=== PATIENT | female | born 1995 | race Caucasian/White ===

== ENCOUNTER 2022-03-02 12:40 | Outpatient (CLI) | payer OTHER, SELFPAY ==
--- NOTE | 2022-03-02 13:00 | CRLHL7_ITS ---
For Patients: As a result of the Cures Act, medical imaging exams and procedure reports are released immediately into your electronic medical record. You may view this report before your referring provider. If you have questions, please contact your health care provider. INDICATION: Evaluate size and dates TECHNIQUE: Ultrasound OB pelvis transvaginal. Real time irizarry scale imaging of the pelvis was performed. COMPARISON: None FINDINGS: Sonographic imaging demonstrates a single living intrauterine gestation. The embryo demonstrates a regular cardiac rate measuring 173 beats per minute. The embryo`s crown rump length measurement of 3.0 cm corresponds to a gestational age of 9 weeks 6 days with a sonographic due date of 09/29/2022. There is a normal appearing yolk sac. There are no gross abnormalities noted within the embryo at this early state of development. The placenta has not yet developed. The gestational sac has a normal appearance. 1.0 centimeter x 1.0 centimeter x 2.2 centimeter subchorionic hemorrhage. The amount of fluid within the sac appears appropriate for gestational age. The cervix is closed. The myometrium appears normal. The ovaries are of normal size. Small right corpus luteal cyst. There are no suspicious fluid collections noted in the cul-de-sac. IMPRESSION: Viable intrauterine . Gestational age calculated at 9 weeks 3 days with a sonographic due date of 09/29/2022. 1.0 centimeter x 1.0 centimeter x 2.2 centimeter subchorionic hemorrhage. Dictated by Aleksandar Hull MD @ 03/03/2022 8:06:38 AM (Electronically Signed)
[2022-03-02 18:04] LABS: Hepatitis B Surface Antigen* Negative (Negative)
[2022-03-02 18:15] LABS: HIV 1/2/P24 Combo Screen* Negative (Negative)
[2022-03-02 18:22] LABS: Hepatitis C Virus Antibody* Negative (Negative)
[2022-03-02 18:56] LABS: Iron* 80 ug/dL (37-170)
[2022-03-02 19:05] LABS: Percent Iron Saturation 25 % (20-50); Total Iron Binding Capacity 323 ug/dL (265-497)
[2022-03-05 12:22] LABS: Rapid Plasma Reagin (RPR) Non Reactive (Non Reactive)
[2022-03-05 14:18] LABS: Rubella Antibody IgG 13.7 IU/mL
== END 2022-03-02 12:41 | disposition home or self-care (01) ==
LOC: US 12:42
PROVIDERS: Visit Provider Physician Assistant
DX: Z34.91 Encounter for supervision of normal pregnancy, unspecified, first trimester (principal); O20.9 Hemorrhage in early pregnancy, unspecified; Z3A.09 9 weeks gestation of pregnancy
CPT/HCPCS: 36415; 76817; 82728; 83540; 83550; 86592; 86703; 86762; 86787; 86803; 86850; 86900; 86901; 87086; 87340

== ENCOUNTER 2022-03-02 14:18 | Outpatient (CLI) | payer OTHER, SELFPAY ==
[2022-03-02 19:14] LABS: Chlamydia DNA Amplified* NOT DETECTED (No Detected); GC DNA Amplified* NOT DETECTED (No Detected)
== END 2022-03-02 14:19 | disposition home or self-care (01) ==
PROVIDERS: Visit Provider Physician Assistant
DX: Z34.91 Encounter for supervision of normal pregnancy, unspecified, first trimester (principal); O20.9 Hemorrhage in early pregnancy, unspecified; Z3A.09 9 weeks gestation of pregnancy
CPT/HCPCS: 87491; 87591

== ENCOUNTER 2022-05-05 07:05 | Outpatient (CLI) | payer OTHER, SELFPAY ==
--- NOTE | 2022-05-05 07:15 | CRLHL7_ITS ---
For Patients: As a result of the Century Cures Act, medical imaging exams and procedure reports are released immediately into your electronic medical record. You may view this report before your referring provider. If you have questions, please contact your health care provider. INDICATION: Evaluate anatomy. COMPARISON: 03.02.22 TECHNIQUE: Real time irizarry scale imaging of the fetus was performed as well as color Doppler analysis of the umbilical vessels. FINDINGS: Sonographic imaging demonstrates a single living intrauterine gestation. Fetus demonstrates a regular cardiac rate of 134 beats per minute. Fetus has a variable position. The placenta lies posteriorly without evidence of placenta previa. The edge of the placenta is located 6.1 cm from the internal cervical os. Amniotic fluid volume appears normal. Single deepest vertical pocket: 5.0 cm. The cervix is closed and measures 3.8 cm in length. The composite ultrasound gestational age is calculated at 19 weeks 4 days with an estimated sonographic due date of 09/25/2022. The estimated weight is 302 grams which lies at the 87th %. The following biometric measurements were obtained: Biparietal diameter: 4.5 cm/19 weeks 4 days 78th% Head circumference: 16.5 cm/19 weeks 2 days 62nd% Abdominal circumference: 14.6 cm/19 weeks 6 days 79th% Femur length: 3.0 cm/19 weeks 3 days 63rd% The HC/AC ratio measures: 1.13 range (1.08-1.26) On anatomic survey, there is a normal appearance of the cerebral ventricles, cavum septi pellucidi, cisterna magna and cerebellum. The nose, lips, and facial profile appear normal. The cervical, thoracic and lumbar spine are well visualized and appear normal. There is a normal four-chamber heart view and the left and right ventricular outflow tracts appear normal. The diaphragm and stomach appear normal. The kidneys and bladder also appear normal. There is a normal three-vessel cord and there is an eccentric cord insertion site. The four extremities appear normal. IMPRESSION: Concordance of clinical and sonographic dating. No intrinsic abnormalities noted on anatomic survey. Dictated by Aleksandar Martin MD @ 05/05/2022 10:19:03 AM (Electronically Signed)
== END 2022-05-05 07:06 | disposition home or self-care (01) ==
LOC: US 07:06
PROVIDERS: Visit Provider Physician Assistant
DX: Z34.92 Encounter for supervision of normal pregnancy, unspecified, second trimester (principal); Z3A.19 19 weeks gestation of pregnancy
CPT/HCPCS: 76805

== ENCOUNTER 2022-07-14 14:41 | Outpatient (CLI) | payer OTHER, SELFPAY | END 2022-07-14 14:42 | disposition home or self-care (01) | LOC: NFLDREF 07-17 21:58 | PROVIDERS: Visit Provider Physician Assistant | DX: Z34.90 Encounter for supervision of normal pregnancy, unspecified, unspecified trimester (principal) | CPT/HCPCS: 86592 ==

== ENCOUNTER 2022-08-08 16:30 | Outpatient (CLI) | payer OTHER, SELFPAY ==
--- NOTE | 2022-08-08 16:45 | CRLHL7_ITS ---
For Patients: As a result of the Century Cures Act, medical imaging exams and procedure reports are released immediately into your electronic medical record. You may view this report before your referring provider. If you have questions, please contact your health care provider. INDICATION: Third trimester scan, evaluate growth. Small for dates. COMPARISON: 05/05/2022 TECHNIQUE: Real time irizarry scale imaging of the fetus was performed. FINDINGS: Sonographic imaging demonstrates a single living intrauterine gestation. Fetus demonstrates a regular cardiac rate of 112 beats per minute. Fetus has a vertex position. The placenta lies posteriorly. Amniotic fluid volume appears normal and there is a single deepest vertical pocket: 3.2 cm. The estimated weight is 1912gm which lies at the 31st %. On the prior OB ultrasound exam dated 05/05/2022 the estimated weight was at the 87th%. BPD 63rd percentile. HC 37th percentile. AC 26th percentile. FL 35th percentile. The HC/AC ratio measures 1.09 range (0.96-1.12). IMPRESSION: Sonographic gestational age 32 weeks 5 days and sonographic due date 09/28/2022. Good correlation dates. Normal interval growth. Estimated weight 31st percentile. Abdominal circumference 26th percentile. Dictated by Aleksandar Martin MD @ 08/09/2022 9:07:47 AM (Electronically Signed)
== END 2022-08-08 16:31 | disposition home or self-care (01) ==
PROVIDERS: Visit Provider Advanced Practice Midwife
DX: O36.5930 Maternal care for other known or suspected poor fetal growth, third trimester, not applicable or unspecified (principal); Z3A.32 32 weeks gestation of pregnancy
CPT/HCPCS: 76816

== ENCOUNTER 2022-09-05 10:31 | Outpatient (CLI) | payer OTHER, SELFPAY ==
[2022-09-06 10:41] LABS: Strep B DNA Probe NEGATIVE (Negative)
[2022-09-06 12:06] LABS: Strep B Pen/Amox Allergy Yes
== END 2022-09-05 10:32 | disposition home or self-care (01) ==
PROVIDERS: Visit Provider Advanced Practice Midwife
DX: Z34.93 Encounter for supervision of normal pregnancy, unspecified, third trimester (principal); Z3A.36 36 weeks gestation of pregnancy
CPT/HCPCS: 87081; 87653

== ENCOUNTER 2022-09-19 14:03 | Outpatient (CLI) | payer OTHER, SELFPAY ==
--- NOTE | 2022-09-19 14:00 | CRLHL7_ITS ---
For Patients: As a result of the Century Cures Act, medical imaging exams and procedure reports are released immediately into your electronic medical record. You may view this report before your referring provider. If you have questions, please contact your health care provider. INDICATION: Small for gestational age TECHNIQUE: Real time irizarry scale imaging of the fetus was performed. COMPARISON: 08/08/2022 FINDINGS: Sonographic imaging demonstrates a single living intrauterine gestation. Fetus demonstrates a regular cardiac rate of 115 beats per minute. Fetus has a vertex position. The placenta lies fundal. Amniotic fluid volume appears normal and there is a single deepest pocket of 3.8 cm. The estimated weight is 3480gm which lies at the 65th %. On the prior OB ultrasound dated 08/08/2022 the estimated weight was at the 31st percentile. BPD 73rd percentile. HC 73rd percentile. AC 68th percentile. FL 35th percentile. The fetus was active and demonstrated normal breathing movements. There was normal flexion and extension of the trunk and extremities. IMPRESSION: Normal biophysical profile score 8/8. Sonographic gestational age 38 weeks 5 days and sonographic due date 09/28/2022. Good correlation with dates. Estimated weight 65th percentile. Abdominal circumference 68th percentile. Dictated by Aleksandar Martin MD @ 09/19/2022 3:36:49 PM (Electronically Signed)
== END 2022-09-19 14:04 | disposition home or self-care (01) ==
LOC: US 14:03
PROVIDERS: Visit Provider Advanced Practice Midwife
DX: O36.5930 Maternal care for other known or suspected poor fetal growth, third trimester, not applicable or unspecified (principal); Z3A.38 38 weeks gestation of pregnancy
CPT/HCPCS: 76816; 76819

== ENCOUNTER 2022-09-27 13:56 | Outpatient (CLI) | payer OTHER, SELFPAY ==
--- NOTE | 2022-09-27 14:00 | CRLHL7_ITS ---
For Patients: As a result of the Century Cures Act, medical imaging exams and procedure reports are released immediately into your electronic medical record. You may view this report before your referring provider. If you have questions, please contact your health care provider. INDICATION: Low heart rate COMPARISON: 09/30/2022 TECHNIQUE: Real time irizarry scale imaging of the fetus was performed. Without non-stress testing. FINDINGS: Sonographic imaging demonstrates a single living intrauterine gestation. Fetus demonstrates a regular cardiac rate of 114-128 beats per minute. Fetus has a vertex position. The amniotic fluid volume appears normal and there is a single deepest pocket measurement of 5.9 cm. The fetus was active and demonstrated normal breathing movements. There was normal flexion and extension of the trunk and extremities. IMPRESSION: Normal biophysical profile score of 8 out of 8. Dictated by Aleksandar Martin MD @ 09/27/2022 3:19:15 PM (Electronically Signed)
== END 2022-09-27 13:57 | disposition home or self-care (01) ==
LOC: US 13:58
PROVIDERS: Visit Provider Advanced Practice Midwife
DX: O36.8390 Maternal care for abnormalities of the fetal heart rate or rhythm, unspecified trimester, not applicable or unspecified (principal)
CPT/HCPCS: 76819

== ENCOUNTER 2022-10-01 04:47 | Outpatient (CLI) | payer OTHER, SELFPAY ==
[2022-10-01 05:02] VITALS: BP 123/70; PULSE 55; RESP 17; TEMP 36.6
--- NOTE | 2022-10-01 06:00 | PC.OBNST ---
NST Note NST Note Start: 10/01/22 04:57 Freq: ONCE Status: Active Protocol: Document 10/01/22 05:59 HI (Rec: 10/01/22 06:00 HI [id number]) NST Note 1 Para (# of births) 0 EDC 09/30/22 Gestational Age In Weeks & Days 40 Weeks & 1 Days Patient Presented with Complaint(s) of Contractions/cramping Reactive Yes Appropriate for Gestational Age Yes GO Quan RNC Date 10/01/22 Reactive Yes Appropriate for Gestational Age Yes GO Story RN Date 10/01/22 OB NST charge Yes Complete NST Note via Write Note Yes The provider's electronic signature indicates the NST is reactive/appropriate for gestational age. *Note to provider: If an addendum is required, open the patient's chart and click on the note under the Nurse/Allied Health tab.
[2022-10-01 06:03] LABS: Appearance Urine Clear (Clear); Bilirubin Urine Negative (Negative); Blood Urine Negative (Negative); Color Urine Yellow (Yellow); Glucose Urine Negative (Negative); Ketones Urine Negative (Negative); Leukocyte Esterase Urine Negative (Negative); Nitrite Urine Negative (Negative); Protein Urine Negative (Negative); Specific Gravity Urine 1.015 (1.000-1.030); Urobilinogen Urine 0.2 (0.2-1.0); pH Urine 8.5 (5.0-8.5)
== END 2022-10-01 06:00 | disposition home or self-care (01) ==
LOC: OB OUT 04:48 → OB 04:48
PROVIDERS: Visit Provider Advanced Practice Midwife
DX: O47.1 False labor at or after 37 completed weeks of gestation (principal); Z3A.40 40 weeks gestation of pregnancy
CPT/HCPCS: 59025; 81003; 99213

== ENCOUNTER 2022-10-01 16:45 | Inpatient (IN) | payer OTHER, SELFPAY ==
[2022-10-01] VITALS (13 sets, daily range): BP systolic 122–146; BP diastolic 53–75; PULSE 35–113; RESP 16–18; TEMP 36.6–37.2; O2SAT 94–99; BMI 25.9
[2022-10-01] MEDS: OXYTOCIN 10 UNIT/ML INJ IM (20:20)
[2022-10-01] MEDS: LIDOCAINE 1 % PF 30 ML INJECTION (20:27)
--- NOTE | 2022-10-01 20:52 | P.LDBA_ITS ---
Subjective History of Present Illness Time Seen by Provider: 18:15 Date Seen: 10/01/22 Narrative: Patient is being admitted to Labor and Delivery for active labor. She is a 27 year old at 40.1 weeks gestation. Her full history and physical was dictated by Nadia Ricardo CNM on 09/11/22. Please see this for details. Ligia had presented earlier in the day. At that time she was 3-4cm and requested to go home to continue to labor there. 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 She come back and was found to be 6cm and more uncomfortable but with good control. She labored in multiple positions before electing to get into the tub. she labored to complete and started pushing spontaneously. 1. PCOS Conceived with Letrozole & Ovidrel 2. History of asthma No symptoms or medication for years 3. Anemia. Hemoglobin 10.8 at 1st OB Iron: 80, ferritin: 43 Ferrous sulfate 325 daily 4. Measuring small for dates at 30.6 weeks. EFW 39% on growth u/s. Repeat at 38 weeks, EFW 65% 5. Low FHR noted at 2 visits. Weekly BPPs recommended per OB. OB - Problem Based A/P Additional Plan (1) Pain during labor: Status: Acute (2) Post term over 40 weeks: Status: Acute Plan ASSESSMENT:? at 40.1 weeks gestation? GBS negative? Uncomplicated ? PLAN:? 1. Admit for active labor. 2. Desires water . Consent signed. Hep C negative.? 3. Candidate for analgesia of choice. Planning unmedicated .? 4. Anticipate .? 5. Expectant management at this time.? 6. IV not needed at this time. Can place if meets criteria per unit policy. 7. Intermittent auscultation after reactive strip per until policy.? ? Delivery/Labor/Induction Plan Plan: expectant management OB Result Labs Blood Type: AB (+) positive GBS Status: negative OB Exam Physical Exam Vital signs: Temp Pulse Resp BP Pulse Ox 98.6 F 90 16 125/67 94 10/01/22 20:47 10/01/22 20:47 10/01/22 19:00 10/01/22 20:47 10/01/22 18:05 Narrative: Psychiatric:? Alert and oriented x3? HEENT:? Normocephalic, atraumatic? Neck:? Supple without adenopathy or thyromegaly? Lungs:? Clear to auscultation bilaterally? Heart:? Regular rate and rhythm, no murmur, rub or gallop? Abdomen:? Soft, nontender, and gravid? Extremities:? No edema or erythema? Detailed Labor and Delivery Exam Patient Gravid: Yes Dilation (cm): 6 (per RN exam) Effacement (%): 90 Contraction Frequency: 2-5 Tachysystole: No Contraction intensity: Strong/Firm Fetus (Single) Amniotic Membrane Status: intact Heart Rate Baseline: 120 Monitor Accelerations: Present Monitor Decelerations: Early Nursing Home Variability: Moderate (6-25)
--- NOTE | 2022-10-01 21:09 | W.PM.OBVAGDE ---
OB Procedure Vag Delivery Mother Details Mother Details: The patient is a 27 year-old, 1, Para 0, admitted on 10/01/22 at 40.1 Days gestation. : 1 Para: 1 Weeks Gestation: 40.1 Admission Date: 10/01/22 Additional Details Amniotic Membrane Status: SROM Amniotic Membrane Rupture Date: 10/01/22 Amniotic Membrane Rupture Time: 19:00 Amniotic Membrane Fluid Description: Clear (terminal meconium ) Analgesia/Anesthesia Type: None Waterbirth: Yes Pitcoin: Yes ( only) Intrapartal Events: None Labor Onset: 16:25 Complete: 18:30 Pushin:30 Heart: heart tones during second stage were auscultated with the doppler in the 110-120's. Delivery Details Delivery Date: 10/01/22 Delivery Time: 20:08 Route of delivery: Infant Gender: Male Infant Viability: Alive; Heart Rate Present Position at Delivery: OA Delivery Details: Ligia pushed well. Ther perineal tissue was very tight and baby sat on the perineum for a number of contractions but the tissue was able to stretch enough for the baby to be delivered. Delivered over intact perineum via spontaneous vaginal delivery. was placed on maternal abdomen.?Cord was clamped and cut almost immediately and brought to the warmer for poor color, tone, and lack of respiratory effort. The baby received PPV and did come around after a short period of time. See the nursing documentation for details. Infant weight 7lb 4oz. There was a nuchal cord that was delivered through. The placenta delivered spontaneously. There was a 1st degree perineal laceration with a 1cm area that went to a 2nd degree and did not involve and muscle tissue that was hemodynamically stable. With shared decision making with the patient, it was decided not to repair. 1 Minute Interval Total Score: 1 5 Minute Interval Total Score: 5 10 Minute Interval Total Score: 8 Additional Details Shoulder Dystocia: No Placenta Delivery Time: 20:17 Placental Delivery Description: Spontaneous Blood Loss: 125 Laceration: Perineal - 1st Degree (1cm 2nd degree laceration. not bleeding and not repaired.) Episiotomy Description: None Blood Loss Measurement Type: QBL Bakri Used: No Sponge/Need Count Correct: Yes Cord Vessel Description: 3 Vessels, Nuchal Cord and Delivered through Event Summary Status: Mother and infant were stable after delivery. Disposition: floor
[2022-10-02 00:02] VITALS: BP 117/61; PULSE 71; RESP 16; TEMP 36.7; O2SAT 98
[2022-10-02 04:22] VITALS: BP 103/53; PULSE 58; RESP 16; TEMP 37; O2SAT 98
[2022-10-02 07:19] LABS: Hemoglobin* 12.6 gm/dL (12.0-16.0)
[2022-10-02] MEDS: IBUPROFEN 600 MG TABLET PO ×2 (07:58→21:38)
[2022-10-02 08:00] VITALS: BP 125/72; PULSE 72; RESP 16; TEMP 37.3; O2SAT 97
[2022-10-02 12:30] VITALS: BP 123/65; PULSE 70; RESP 16; TEMP 36.6; O2SAT 98
--- NOTE | 2022-10-02 13:13 | P.DS_ITS ---
DS: Providers Provider Time Seen by Provider: 13:13 Date Seen: 10/02/22 Date of admission: 10/01/22 16:45 Primary care physician: Not a Local Provider Admitting Clinician: Fadia Campos CNM Attending Physician on discharge: Fadia Campos CNM Date of Discharge: 10/02/22 DS: Diagnosis Discharge Diagnosis (1) NVD (normal vaginal delivery): Status: Acute (2) Lactating mother: Status: Acute Exam Narrative: Exam Narrative: VSS, afebrile GENERAL APPEARANCE: ?normal affect, alert, no distress MOOD: ?appropriate HEENT: normocephalic, neck supple, full ROM CHEST: ?Symmetrical chest wall movement. ?Normal respiratory effort. ?Clear to auscultation HEART: ?regular rate and rhythm ABDOMEN: ?soft, non-tender. Uterine fundus is firm, 2 below Umbilicus, Midline and is appropriate for the stage of recovery. ?Bowel sounds present. PERINEUM: ?mild edema of the perineum, there is a 2nd degree laceration that is healing well. EXTREMITIES: ?normal and no edema Const: Vital Signs, click to edit/add: Vital Signs - 24 hr 10/01/22 16:08 10/01/22 16:13 10/01/22 17:02 Temperature Pulse Rate 58 L Pulse Rate [Pulse Oximeter] Respiratory Rate Blood Pressure 123/68 Blood Pressure [Le ft Arm] Pulse [facility]ximetry 99 [facility] 18:05 10/01/22 19:00 10/01/22 20:32 Temperature 98.0 F 97.9 F Pulse Rate 113 H 90 85 Pulse Rate [Pulse Oximeter] Respiratory Rate 18 16 Blood Pressure 133/53 L 146/68 H 122/66 Blood Pressure [Le ft Arm] Pulse Oximetry 94 [facility] 10[facility]/22 20:32 10/01/22 20:47 10/01/22 21:02 Temperature 99 F 98.6 F Pulse Rate 90 71 Pulse Rate [Pulse Oximeter] Respiratory Rate Blood Pressure 125/67 123/56 L Blood Pressure [Le ft Arm] Pulse Oximetry [facility] 21:02 10/01/22 21:17 10/01/22 21:17 Temperature 98.7 F 98.4 F Pulse Rate 65 Pulse Rate [Pulse Oximeter] Respiratory Rate Blood Pressure 126/61 Blood Pressure [Le ft Arm] Pulse Oximetry Oxygen Delivery Me thod 10/01/22 21:32 10/01/22 21:32 10/01/22 21:47 Temperature 98.8 F Pulse Rate 74 72 Pulse Rate [Pulse Oximeter] Respiratory Rate Blood Pressure 126/63 125/64 Blood Pressure [Le ft Arm] Pulse Oximetry Oxygen Delivery Me thod 10/01/22 21:47 10/01/22 22:02 10/01/22 22:02 Temperature 98.5 F 98.3 F Pulse Rate 35 L Pulse Rate [Pulse Oximeter] Respiratory Rate Blood Pressure 122/75 Blood Pressure [Le ft Arm] Pulse Oximetry Oxygen Delivery Me thod 10/01/22 22:17 10/01/22 22:17 10/02/22 00:02 Temperature 98.4 F 98.0 F Pulse Rate 72 Pulse Rate [Pulse Oximeter] 71 Respiratory Rate 16 Blood Pressure 126/68 Blood Pressure [Le ft Arm] 117/61 Pulse Oximetry 98 Oxygen Delivery Me thod Room Air 10/02/22 04:22 10/02/22 08:00 10/02/22 12:30 Temperature 98.6 F 99.2 F 97.9 F Pulse Rate Pulse Rate [Pulse Oximeter] 58 L 72 70 Respiratory Rate 16 16 16 Blood Pressure Blood Pressure [Le ft Arm] 103/53 L 125/72 123/65 Pulse Oximetry 98 97 98 Oxygen Delivery Me thod Room Air Room Air Room Air Documenting provider has reviewed patient's vital signs: yes OB - DS: Summary Hospital Course Hospital Course: Ligia is a 27 y.o. G1 P 1 who was admitted to [facility] & [facility] for labor. ?She had an uncomplicated NVD The patient feels well. ?The pain is well controlled with current medications. ?She has no new complaints. ?She is breast feeding and reports things are going well.? the patient has done well.? Vitals have been stable.? She has remained afebrile.? Has a good appetite, is tolerating a general diet. ?She is voiding without difficulty.? She is passing gas and has not had a bowel movement.? She is ambulating and denies any dizziness.? Has Small amount of rubra lochia. Problems: none plan: Discharge home with baby. Follow up in 2 weeks and 6 weeks. , may follow up with if needed Peripartum Data delivery method: Vaginal Laceration description: Perineal - 2nd Degree complications: none Infant Gender: Male Discharge Plan: Home Status at Discharge Functional status at discharge: independent ambulation Overall status at discharge: patient is progressing back to baseline Time Spent with Patient Time attestation: Total time spent providing and/or coordinating discharge services: Time spent: Less than 30 minutes Discharge Plan Discharge Disposition: Home, Self-Care Date of Admission: 10/01/22 16:45 Attending Provider on Discharge: Lorene Contreras Primary Care Provider: Provider,Not a Local Condition: Stable Anticipated Discharge Date/Time: 10/02/22 21:00 Discharge Medications: New docusate sodium 100 mg Capsule 100 mg PO BID PRNQty: 100 0RF Rx Instructions: Take 1 cap 1-2 times a day as needed for constipation ibuprofen 600 mg Tablet 600 mg PO Q6H PRNQty: 60 0RF Continued prenat.vits,nasir,[id number] Tablet 1 tab PO QDAY Discontinued ferrous sulfate 325 mg (65 mg iron) tablet 325 mg PO QDAY Qty: 90 3RF Discharge Orders: Discharge Order (Routine); Ordered 10/02/22 Ordered By: Lorene Contreras Patient Education: OB Over the Counter Medication Information, OB Vaginal/Breast Feeding Additional Instructions: Follow up at 2 and 6 weeks in the clinic Activity Level: Activity as Tolerated Discharge Diet: Regular Follow Up Appointments: Provider,Not a Local [Primary Care Provider] - Forms: [employer] Info Instructions
[2022-10-02 16:00] VITALS: BP 117/75; PULSE 57; RESP 16; TEMP 36.6; O2SAT 98
[2022-10-02 21:00] VITALS: BP 109/65; PULSE 57; RESP 16; TEMP 36.7
== END 2022-10-02 22:32 | disposition home or self-care (01) | DRG 807 ==
LOC: OB OUT 16:56 → OB 16:56
PROVIDERS: Admitting Provider Advanced Practice Midwife; Visit Provider Advanced Practice Midwife
DX: O48.0 Post-term pregnancy (principal); Z37.0 Single live birth; O99.284 Endocrine, nutritional and metabolic diseases complicating childbirth; E28.2 Polycystic ovarian syndrome; O70.1 Second degree perineal laceration during delivery; Z3A.40 40 weeks gestation of pregnancy
CPT/HCPCS: 36415; 85018; A9270; J2001; J2590

== ENCOUNTER 2023-03-02 09:26 | Outpatient (CLI) | payer OTHER, SELFPAY ==
--- NOTE | 2023-03-02 17:00 | W.PM.LAC.MC ---
Consult Note - Mom Date of Visit Date of visit: 03/02/23 construction safety consultant: Merlene Oliver Visit Code: Visit Patient's Information Phone number: [phone] : 1 Para: 1 Allergies amoxicillin Allergy (Mild, Verified 11/14/22 08:26) Rash Mother's Medical History: Medical History (Updated 11/14/22 @ 10:57 by Sola Leigh MD) hx of infertility treatment to conceive baby Type of Contraception: condoms Work Plans: stay at home mom Delivery Information Delivery type: Vaginal Weeks Gestation: 40.1 Gestational Age: AGA Weight: 3.28 kg Baby's Information Baby's Age at Visit: 5 months Baby's Provider or Clinic: Dr. Langston Reason for Consult Reason for Consult: mom is concerned for her supply, pre and post feeding weight Past Experience Past Experience: No Current Frequency of Day Feedings: baby nurses 7 - 8 times/24 hours Both Breasts: Yes Suck: strong Latch: wide Length of Time: about 10 minutes total Pumping Pumping: Yes (once/day) Quantity Pumped: usually 2 - 3 oz total Supplementing EMB Supplement: Yes (baby takes 1 - 2 oz EBM or Nutramigen after most nursing sessions) Formula Supplement: Yes Baby Elimination Number of Wet Diapers a Day: almost every feeding Number of BM a Day: 1 - 3 times/day, more solid now with formula Breast/Nipple Condition Breast Information: WNL Maternal Nipple Condition - Left: Common Nipple Maternal Nipple Condition - Right: Common Nipple Onsite Pre-Feed weight: 6.6 kg Post-Feed weight: 6.71 kg Milk Transferred (mL): 110 Assessments/Interventions Assessments/Interventions: Met with mom and this now 5 month old ex- term AGA baby for consult. Mom reports a concern for her supply beginning a few months ago, and then especially after baby's 4 month WCC where he had fallen from the 40th percentile on the growth chart to the 4th. She states she's at home with him so he nurses 7 - 8 times/24 hours and the sessions have gotten shorter, now only lasting about 10 minutes total. She said he was a little fussy after nursing, but she'd burp him, he'd start playing with something, then get sleepy so she wasn't concerned until his PCP visit. For about a week she's added in Nutramigen formula, about 1 oz after every nursing session (baby is sensitive to dairy in her diet). States he's been more content and sleeping better overnight with the addition of the formula. She's pumping once/day and gets between 2 - 3 oz total. She tried pumping three times/day last week but it got to be too much. She's tried power pumping in the past but stated it helped for a few days but her supply seemed to go back down after that. Breasts WNL- symmetrical with rounded lower quadrants, intramammary distance < 1.5 inches. Nipples are everted and don't flatten or retract on compression, no damage noted. Mom with hx of PCOS and stated she conceived baby through fertility treatments. She reports positive breast changes during . Baby has gained 63 grams/day since mom started adding formula on 02/22. His palate is WNL. His upper lip is a little difficult to flange, but the gums don't jose david and no suck blister noted. He has a fairly strong suck on a finger and his tongue consistently extends past the gum line. The tongue has good lateral movement and the lower frenulum appears to be WNL. Mom latched him to both sides and the latch was wide, she was comfortable. Baby nursed for about 10 minutes total and transferred 110 grams (3.7 oz). Mom was measured and a flange size was suggested. Plan: 1. Mom to continue nursing on demand. We discussed that it's natural for nursing sessions to get shorter as babies get older b/c they're more efficient. 2. Will continue to offer supplementation after nursing but she can use her EBM first and then formula when she doesn't have any more of her milk. 3. Suggested she continue pumping daily, but to add in hand expression after nursing sessions and pumping. She practiced here and was able to get some sprays of milk. Referred her to two videos to watch at home. 4. Could try herbal supplements and handout given, no contraindications. 5. Will f/u with her by phone on 03/09 and baby will see PCP for a 6 month WCC. Meds Home Medications and Allergies Home Medications Medication Instructions Recorded Confirmed Type prenat.vits,nasir,[id number] 1 tab PO QDAY 03/02/22 11/14/22 History Allergies Allergy/AdvReac Type Severity Reaction Status Date / Time amoxicillin Allergy Mild Rash Verified 11/14/22 08:26
== END 2023-03-02 09:27 | disposition home or self-care (01) ==
LOC: OB LAC 09:27
PROVIDERS: Visit Provider Obstetrics & Gynecology
DX: Z39.1 Encounter for care and examination of lactating mother (principal)
CPT/HCPCS: 99211

== ENCOUNTER 2023-09-07 11:48 | Outpatient (CLI) | payer OTHER, SELFPAY | END 2023-09-07 11:49 | disposition home or self-care (01) | LOC: NFLDREF 09-11 16:28 | PROVIDERS: Visit Provider Advanced Practice Midwife | DX: Z13.220 Encounter for screening for lipoid disorders (principal) | CPT/HCPCS: 80061 ==

== ENCOUNTER 2023-10-17 14:15 | Outpatient (RCR) | payer OTHER, SELFPAY | END 2023-12-11 14:12 | disposition home or self-care (01) | PROVIDERS: Visit Provider Advanced Practice Midwife | DX: R42 Dizziness and giddiness (principal); M25.50 Pain in unspecified joint; Z51.89 Encounter for other specified aftercare | CPT/HCPCS: 95992; 97110; 97140; 97162 ==

== ENCOUNTER 2024-07-08 12:06 | Outpatient (CLI) | payer OTHER, SELFPAY ==
--- NOTE | 2024-07-08 12:15 | CRLHL7_ITS ---
For Patients: As a result of the Century Cures Act, medical imaging exams and procedure reports are released immediately into your electronic medical record. You may view this report before your referring provider. If you have questions, please contact your health care provider. OBSTETRICAL ULTRASOUND TRANSVAGINAL - FIRST TRIMESTER, 07/08/2024 CLINICAL INDICATION: Dating and viability. LMP: 04/16/2024 STEPHANIE by LMP: 01/21/2025 Gestational age: 11 weeks 6 days Previous ultrasound: No TECHNIQUE: Real-time irizarry-scale imaging of the fetus was performed transvaginal. FINDINGS: CRL: 1.7 cm, 8 weeks 1 day; STEPHANIE 02/16/2025 heart rate: 165 BPM Gestational sac: 3.2 cm, appears within normal limits Yolk sac: 2.3 mm, appears within normal limits Right ovary: Within normal limits; 4.3 x 2.0 x 3.0 cm, CL Left ovary: Within normal limits; 3.5 x 1.7 x 2.4 cm COMMENT: Anechoic right paraovarian cyst 12 x 12 x 14 mm. Patient states irregular cycles due to PCOS and delivery 2 years ago. IMPRESSION: 1. Single living intrauterine with sonographic gestational age of 8 weeks 1 day and sonographic due date of 02/16/2025. 2. Corpus luteal cyst of right ovary and right paraovarian simple cyst. 3. Two subchorionic hemorrhages measuring 8 x 14 x 17 mm and 25 x 5 x 9 mm. ALEKSANDAR OTERO M.D. Diagnostic Radiologist [email or web address] Transcribed: 5:[address]/Dictated by: Aleksandar Otero MD @ 07/08/2024 3:24:00 PM (Electronically Signed)
== END 2024-07-08 12:07 | disposition home or self-care (01) ==
LOC: US 12:06
PROVIDERS: Visit Provider Advanced Practice Midwife
DX: Z34.91 Encounter for supervision of normal pregnancy, unspecified, first trimester (principal); O20.9 Hemorrhage in early pregnancy, unspecified; O34.81 Maternal care for other abnormalities of pelvic organs, first trimester; N83.11 Corpus luteum cyst of right ovary; Z3A.08 8 weeks gestation of pregnancy
CPT/HCPCS: 76817

== ENCOUNTER 2024-07-08 13:31 | Outpatient (CLI) | payer OTHER, SELFPAY | END 2024-07-08 13:32 | disposition home or self-care (01) | PROVIDERS: Visit Provider Advanced Practice Midwife | DX: Z34.81 Encounter for supervision of other normal pregnancy, first trimester (principal); Z67.30 Type AB blood, Rh positive | CPT/HCPCS: 83020; 83021; 85660; 86592; 86703; 86704; 86706; 86762; 86787; 86803; 86850; 86900; 86901; 87086; 87340 ==

== ENCOUNTER 2024-08-05 13:29 | Outpatient (CLI) | payer OTHER, SELFPAY | END 2024-08-05 13:30 | disposition home or self-care (01) | PROVIDERS: Visit Provider Advanced Practice Midwife | DX: Z34.91 Encounter for supervision of normal pregnancy, unspecified, first trimester (principal); Z3A.12 12 weeks gestation of pregnancy | CPT/HCPCS: 87491; 87591 ==

== ENCOUNTER 2024-09-04 13:36 | Outpatient (CLI) | payer OTHER, SELFPAY | END 2024-09-04 13:37 | disposition home or self-care (01) | LOC: NFLDREF 09-05 01:32 | PROVIDERS: Visit Provider Advanced Practice Midwife | DX: Z34.92 Encounter for supervision of normal pregnancy, unspecified, second trimester (principal); N39.3 Stress incontinence (female) (male); Z3A.16 16 weeks gestation of pregnancy | CPT/HCPCS: 87086 ==

== ENCOUNTER 2024-09-30 15:41 | Outpatient (CLI) | payer OTHER, SELFPAY ==
--- NOTE | 2024-09-30 15:45 | CRLHL7_ITS ---
For Patients: As a result of the Century Cures Act, medical imaging exams and procedure reports are released immediately into your electronic medical record. You may view this report before your referring provider. If you have questions, please contact your health care provider. OB ULTRASOUND SURVEY STEPHANIE by US: 02/16/2025. GA: 20 w, 1 d. INDICATION: Supervision of normal . TECHNIQUE: Real time irizarry scale imaging of the fetus was performed. Evaluate anatomy. Transabdominal imaging performed. position: Vertex. Cervix: Visualized. Technique: Transabdominal. Length of closed cervix: 6.2 cm. Placenta/cord: Anterior. Technique: Transabdominal. Placenta tip to internal OS: 6.8 cm. Umbilical Cord: 3-vessel cord. Placenta insertion: Central. Amniotic Fluid: 5.0 cm SDP (greater than/equal to: 2- less than 8 cm). SURVEY: Observed Structures. Calvarium/Spine: Cerebellum: 2.1 cm, 21 w 0 d. Cisterna Magna: 4.0 mm. Nuchal Fold: 3.5 mm. Lateral Ventricle: 6.1 mm. CSP: Yes. Midline Falx: Yes. Choroid Plexus: Yes. Spine: Yes. Abdomen: Stomach: Yes. Abd Cord Insertion: Yes. Urinary Bladder: Yes. Kidneys: Yes. Diaphragm: Yes. Face: Nose/lips: Yes. Orbital view: Yes. Profile: Yes. Limbs: Upper Extremities: Yes. Lower Extremities: Yes. Hands: Yes. Feet: Yes. Vascular: 4-Chamber Heart: Yes. LVOT: Yes. RVOT: Yes. 3VV: Yes. 3VTV: Yes. BPD: 4.6 cm. 19 w, 6 d, 36 percent. HC: 17.4 cm. 19 w, 6 d, 31 percent. AC: 14.6 cm. 19 w, 6 d, 35 percent. FL: 3.2 cm. 20 w, 6 d, 37 percent. FL/AC ratio: 22.06 percent. HC/AC ratio: 1.19. heart rate: 142 bpm. age by this US: 20 w, 1 d. STEPHANIE by this US: 02/16/2025. EFW: 320.95 g. Weight: 0 lbs, 11 oz. Percentile by STEPHANIE: 33 percent. IMPRESSION: 1. Concordance of clinical and sonographic dating. 2. Normal anatomic survey. Aleksandar Martin M.D. Diagnostic Radiologist [email or web address] ALLY/jj jj/Dictated by: Aleksandar Martin MD @ 10/01/2024 6:03:00 AM (Electronically Signed)
== END 2024-09-30 15:42 | disposition home or self-care (01) ==
LOC: US 15:42
PROVIDERS: Visit Provider Advanced Practice Midwife
DX: Z34.92 Encounter for supervision of normal pregnancy, unspecified, second trimester (principal); Z3A.20 20 weeks gestation of pregnancy
CPT/HCPCS: 76805

== ENCOUNTER 2024-11-28 13:43 | Outpatient (CLI) | payer OTHER, SELFPAY | END 2024-11-28 13:44 | disposition home or self-care (01) | LOC: NFLDREF 12-03 15:18 | PROVIDERS: Visit Provider Advanced Practice Midwife | DX: Z34.92 Encounter for supervision of normal pregnancy, unspecified, second trimester (principal) | CPT/HCPCS: 86592 ==

== ENCOUNTER 2025-01-23 13:45 | Outpatient (CLI) | payer OTHER, SELFPAY | END 2025-01-23 13:46 | disposition home or self-care (01) | LOC: NFLDREF 01-27 06:27 | PROVIDERS: Visit Provider Midwife | DX: Z34.82 Encounter for supervision of other normal pregnancy, second trimester (principal) | CPT/HCPCS: 87081; 87653 ==

== ENCOUNTER 2025-02-03 10:30 | Outpatient (RCR) | payer OTHER, SELFPAY | END 2025-03-06 13:17 | disposition home or self-care (01) | PROVIDERS: Visit Provider Advanced Practice Midwife | DX: N81.89 Other female genital prolapse (principal); N39.3 Stress incontinence (female) (male); Z39.2 Encounter for routine postpartum follow-up; Z51.89 Encounter for other specified aftercare | CPT/HCPCS: 97110; 97112; 97161; 97535 ==

== ENCOUNTER 2025-02-13 00:21 | Inpatient (IN) | payer OTHER, SELFPAY ==
[2025-02-13] VITALS (15 sets, daily range): BP systolic 112–147; BP diastolic 59–81; PULSE 49–77; RESP 16–18; TEMP 36.5–36.9; O2SAT 97–100
--- NOTE | 2025-02-13 00:46 | W.PM.OBVAGDE ---
OB Procedure Vag Delivery Mother Details Mother Details: The patient is a 29 year-old, 2, Para 1, admitted on 02/13/25 at 39+4 Days gestation. She presented in active labor, very uncomfortable and feeling the need to push. I was called to attend the delivery as I was present on the unit, and the insurance claims clerk was en route. Upon my arrival, head was . Membranes remained intact, ruptured for clear fluid with delivery of the head. Infant was placed on the maternal chest. Initially appeared cyanotic with poor respiratory effort, cord was cut and clamped. However, infant then cried vigorously and was able to stay with mom. Placenta delivered spontaneously, was 3V and appeared complete. Deep R clitoral laceration and first degree perineal lacerations appeared hemostatic. R clitoral was ultimately repaired by the insurance claims clerk d/t oozing upon her arrival. Mother declined IM pitocin. QBL 644. Mother and infant are resting comfortably. : 2 Para: 1 Weeks Gestation: 39.4 Admission Date: 02/13/25 Additional Details Amniotic Membrane Status: SROM Amniotic Membrane Rupture Time: 00:07 Amniotic Membrane Fluid Description: Clear Analgesia/Anesthesia Type: None Waterbirth: No Pitcoin: No Intrapartal Events: Precipitous Labor <3 Hrs Labor Onset: 23:19 Pushin:03 Heart: heart tones during second stage were unknown. Delivery Details Delivery Date: 02/13/25 Delivery Time: 00:07 Route of delivery: Infant Gender: Female Viability: Alive; Heart Rate Present Position at Delivery: OA Delivery Details: Delivered via spontaneous vaginal delivery. Infant was placed on maternal abdomen.? Cord was clamped immediately as there was concern the infant would need to be moved to the warmer. Then cried vigorously and was able to stay with mom. Nose and mouth were bulb suctioned.? weight pending. 1 Minute Interval Total Score: 8 5 Minute Interval Total Score: 9 Additional Details Shoulder Dystocia: No Placenta Delivery Time: 00:12 Placental Delivery Description: Spontaneous Procedure Done: only Blood Loss: 644 Laceration: Perineal - 1st Degree (R clitoral, both hemostatic. R clitoral repaired by the insurance claims clerk.) Episiotomy Description: None Blood Loss Measurement Type: QBL Bakri Used: No Sponge/Need Count Correct: Yes Cord Vessel Description: 3 Vessels Event Summary Status: Mother and infant were stable after delivery. Disposition: floor
[2025-02-13] MEDS: LIDOCAINE 1 % PF 30 ML INJECTION (01:01)
[2025-02-13] MEDS: lidocaine HCL 2 % JELLY (TOP) STERILE 6 ML TOPICAL (01:04)
--- NOTE | 2025-02-13 01:27 | P.EN_ITS ---
Chart Event Note Date Seen: 02/13/25 Chart Event Note: [facility] Pt arrived completely dilated and Dr Hawkins was already in house and kind enough to attend. Please see her note for other information. I arrived after the placenta was delivered and assessed the laceration. there was a right periclitoral laceration that was oozing. No other significant lacerations. With consent, Laceration was repaired with 4-0 vicryl on a SH needle in the usual fashion under 1% lidocaine subcutaneous and lidocaine jelly to the vulva topically. No urethral involvement. After repair, uterus was still firm but fundal pressure produced some vaginal bleeding which prompted a sweep of the vagina and cervix with an additional 100 cc in clots expelled. Total QBL 644cc. Fundus at 3 fingerbreadths below the umbilicus. Pitocin for hemorrhage prophylaxis was held per patient wishes, but I advised it be given if any further clots or if any uterine atony were to occur. Encouraged emptying of bladder as soon as able. Sponge count correct.
--- NOTE | 2025-02-13 01:35 | P.LDBA_ITS ---
Subjective History of Present Illness Date Seen: 02/13/25 Narrative: Patient was admitted to Labor and Delivery for advanced stages of labor and delivered5 minutes after arrival. See delivery note. This admit note is being written after delivery and repair due to patient needs. She is a 29 year old at 39 4/7 weeks gestation. Her full history and physical was dictated by Ayleen Campos CNM on 01/30/25. Please see this for details. She was supported in labor by her Georges and their sales engineering manager Dixie. No reports of LOF, vaginal bleeding and patient reports good movement. She reports contractions have been happening since yesterday afternoon with increasing intensity and frequency last raghavendra. Pt called the unit at 2319 stating she was going to head in. She arrived . There was not enough time to fill the tub and the structural steel worker was not yet in house on her arrival. Waterbirth was not a safe option. Specific Issues/Plans Partner: Georges? It is a girl! Son: Will H&P:? 01/30/25 Cherrie Campos CNM # Hx of asthma? no daily meds? #Breech at 33.4 weeks, RESOLVED Confirmed vertes at 36.4 Imaging:??? 10/01/2024: 1. Concordance of clinical and sonographic dating. 2. Normal anatomic survey. Vaccinations:?? COVID: 01/02/2025? Flu: 01/02/2025? Tdap: 01/02/2025? RSV: 01/02/2025? Comments: ? OB - Problem Based A/P Additional Plan (1) Active labor at term: Status: Acute Plan ASSESSMENT:?? 29 on arrival at 39 4/7 weeks gestation?? complicated by:??Breech presentation that resolved Labor type: spontaneous, Active labor?? Labor complicated by: none?? GBS negative? PLAN:?? 1. Routine intrapartum cares as ordered. Continue with expectant management?? 2. Monitoring per policy, intermittent?? 3. Planning unmedicated . 4. Patient encouraged to reposition and ambulate to promote physiologic labor and .?? 5. Anticipate OB Result Labs Blood Type: AB (+) positive Rubella: immune RPR/VDLR: nonreactive GBS Status: negative HBsAG: negative OB Exam Physical Exam Vital signs: Temp Pulse Resp BP 97.7 F 56 L 16 112/71 02/13/25 00:15 02/13/25 01:30 02/13/25 00:15 02/13/25 01:30 Narrative: Vitals Reviewed Constitutional:? Alert and oriented x3 HEENT:? Normocephalic, atraumatic Abdomen:? Soft, nontender, and gravid. Vertex by visualization of the head on arrival Extremities:? No edema or erythema Cervix: 10cm/
[2025-02-13] MEDS: IBUPROFEN 600 MG TABLET PO (03:00)
[2025-02-13] MEDS: DOCUSATE SODIUM 100 MG CAPSULE PO (09:11)
[2025-02-14] MEDS: ACETAMINOPHEN 500 MG TABLET 1000 MG PO ×2 (04:18→11:03)
[2025-02-14 04:19] VITALS: BP 123/67; PULSE 54; RESP 16; TEMP 36.3; O2SAT 98
[2025-02-14 07:22] LABS: Hemoglobin* 12.5 gm/dL (12.0-16.0)
[2025-02-14] MEDS: IBUPROFEN 600 MG TABLET PO (07:57)
[2025-02-14] MEDS: DOCUSATE SODIUM 100 MG CAPSULE PO (07:57)
[2025-02-14 08:00] VITALS: BP 115/71; PULSE 46; RESP 16; TEMP 36.4; O2SAT 99
--- NOTE | 2025-02-14 08:37 | PM.OBDSVD1 ---
DS: Providers Provider Date Seen: 02/14/25 Date of admission: 02/13/25 00:21 Primary care physician: Not a Local Provider Admitting Clinician: Neelima Astudillo CNM Attending Physician on discharge: Fransisco Puentes CNM Date of Discharge: 02/14/25 DS: Diagnosis Discharge Diagnosis (1) care and examination of lactating mother: Status: Acute (2) Elevated blood pressure reading without diagnosis of hypertension: Status: Acute Exam Narrative: Exam Narrative: VSS, afebrile GENERAL APPEARANCE: ?normal affect, alert, no distress MOOD: ?appropriate HEENT: normocephalic, neck supple, full ROM CHEST: ?Symmetrical chest wall movement. ?Normal respiratory effort. ?Clear to auscultation HEART: ?regular rate and rhythm ABDOMEN: ?soft, non-tender. Uterine fundus is firm, 1 below Umbilicus, Midline and is appropriate for the stage of recovery. ?Bowel sounds present. PERINEUM: ?mild edema of the perineum, there is a 1st degree laceration that is healing well. EXTREMITIES: ?normal and no edema Const: Vital Signs, click to edit/add: Vital Signs - 24 hr 02/13/25 09:15 02/13/25 13:30 02/13/25 16:37 Temperature 97.9 F 98.0 F 98.4 F Pulse Rate [Pulse Oximeter] 51 L 77 57 L Respiratory Rate 16 18 16 Blood Pressure [Le ft Arm] 127/59 L 125/80 118/62 Pulse Oximetry 100 98 97 Oxygen Delivery Me thod Room Air Room Air Room Air 02/13/25 20:28 02/14/25 04:19 02/14/25 08:00 Temperature 97.8 F 97.4 F L 97.6 F Pulse Rate [Pulse Oximeter] 50 L 54 L 46 L Respiratory Rate 16 16 16 Blood Pressure [Le ft Arm] 113/67 123/67 115/71 Pulse Oximetry 97 98 99 Oxygen Delivery Me thod Room Air Room Air Room Air Documenting provider has reviewed patient's vital signs: yes OB - DS: Summary Hospital Course Hospital Course: Ligia is a 29 y.o. who was admitted to L & D for active labor. ?She had an uncomplicated NVD.?The patient feels well. ?The pain is well controlled with current medications. ?She has no new complaints. ?She is breast feeding and reports things are going well.? the patient has done well.? Vitals have been stable. She does complain about a headache that hasn't gone away with Tylenol and hydration. Plan to eat a good meal, have some caffeine as she usually has one cup a day and monitor BP until this afternoon. If headache can be treated she can discharge at that time. If unable to treat may consider staying an additional night. ? She has remained afebrile.? Has a good appetite, is tolerating a general diet. ?She is voiding without difficulty.? She is passing gas and has had a bowel movement.? She is ambulating and denies any dizziness.? Has Small amount of rubra lochia. ?She is undecided on her plan for prevention. Peripartum Data delivery method: Vaginal Laceration description: Perineal - 1st Degree complications: none [place] Gender: Female Infant Discharge Plan: Home Status at Discharge Functional status at discharge: independent ambulation Overall status at discharge: patient is progressing back to baseline Time Spent with Patient Time attestation: Total time spent providing and/or coordinating discharge services: Time spent: Less than 30 minutes Discharge Plan Discharge Disposition: Home, Self-Care Date of Admission: 02/13/25 00:21 Attending Provider on Discharge: Fransisco Puentes Primary Care Provider: Provider,Not a Local Condition: Stable Anticipated Discharge Date/Time: 02/14/25 16:00 Discharge Medications: New Dermoplast (with menthol) 20-0.5 % Aerosol 1 spray topical QID PRNQty: 0 0RF acetaminophen 500 mg Tablet 1,000 mg PO Q6H PRNQty: 0 0RF docusate sodium 100 mg Capsule 100 mg PO DAILY Qty: 90 0RF ibuprofen 600 mg Tablet 600 mg PO Q6H PRNQty: 60 0RF Continued One-A-Day 400 mcg- 25 mg tablet,chewable 1 tab PO DAILY Discharge Orders: Discharge Order (Routine); Ordered 02/14/25 Ordered By: Fransisco Puentes Patient Education: OB Over the Counter Medication Information, OB Vaginal/Breast Feeding Additional Instructions: Discharge instructions were reviewed with the patient including signs and symptoms of infection and home going medications Nothing vaginally for 6 weeks: no tampons or intercourse Off Work or School for 6 weeks 2-week visit: discuss feeding concerns, review control options and screen for anxiety/depression. 6-week visit for an annual exam. consultation services are available to all mothers and babies for the first year after delivery.? To make an appointment, please call [phone]. Activity Level: Activity as Tolerated Discharge Diet: Regular Follow Up Appointments: [facility] [Provider Group] Forms: ChangeAgain[employer]Me Info Instructions
[2025-02-14 12:20] VITALS: BP 121/72; PULSE 49; RESP 16; TEMP 36.4; O2SAT 100
== END 2025-02-14 14:47 | disposition home or self-care (01) | DRG 768 ==
LOC: OB OUT 00:22 → OB 00:22
PROVIDERS: Admitting Provider Midwife; Visit Provider Midwife
DX: O62.3 Precipitate labor (principal); Z37.0 Single live birth; O70.0 First degree perineal laceration during delivery; R03.0 Elevated blood-pressure reading, without diagnosis of hypertension; R51.9 Headache, unspecified; O71.82 Other specified trauma to perineum and vulva; Z3A.39 39 weeks gestation of pregnancy
CPT/HCPCS: 36415; 85018; 86592; A9270; J2003